=== PATIENT | female | born 1995 | race Caucasian/White ===

== ENCOUNTER 2018-07-03 03:41 | Inpatient (IN) ==
[2018-07-03] MEDS ORDERED: Metoclopramide 10 MG/2 ML VIAL IVP PRN (03:52)
[2018-07-03] MEDS ORDERED: Ondansetron 4 MG/2 ML VIAL IVP PRN (03:52)
[2018-07-03] MEDS ORDERED: miSOPROStol 25 MCG TABLET VG PRN (03:52)
[2018-07-03] MEDS ORDERED: *HR* Nalbuphine 10 MG/ML AMPUL IVP PRN (03:52)
[2018-07-03] MEDS ORDERED: Famotidine 20 MG/2 ML VIAL IVP PRN (03:52)
[2018-07-03] MEDS ORDERED: Naloxone 0.4 MG/ML INJ IVP PRN (03:52)
[2018-07-03] MEDS ORDERED: Ringers Solution, Lactated 1,000 ML IVC SCH (04:00)
[2018-07-03 05:14] LABS: Hematocrit 38.6 % (35.3-44.9); Hemoglobin 12.9 g/dL (11.5-15.4); Mean Corpuscular HGB Conc 33.4 g/dL (31.6-35.5); Mean Corpuscular Hemoglobin 29.5 pg (28.0-33.3); Mean Corpuscular Volume 88.3 fL (83.0-100.0); Mean Platelet Volume 11.7 fL (9.4-12.4); Platelet Count 173 K/mcL (140-400); Red Blood Count 4.37 M/mcL (3.82-4.97); Red Cell Distribution Width 13.6 % (11.5-14.5); Segmented Neutrophils % 72.1 %
[2018-07-03 05:15] LABS: Basophils # 0.1 K/mcL (0.0-0.2); Basophils % 0.6 %; Eosinophils # 0.1 K/mcL (0.0-0.6); Eosinophils % 1.1 %; Immature Granulocytes % 1.4 % (0-4); Lymphocytes # 1.9 K/mcL (0.6-4.6); Monocytes % 8.8 %; Neutrophils # 8.3 K/mcL (1.6-8.9)
[2018-07-03] MEDS ORDERED: miSOPROStol 25 MCG TABLET PO PRN (06:26)
[2018-07-03] MEDS ORDERED: Oxytocin 20 units/ LR 1000 mL 20 UNIT/1,000 ML BAG IVC SCH (06:30)
[2018-07-03] MEDS ORDERED: Epidural Premix (fent/bupiv) 110 ML EP SCH (07:45)
--- NOTE | 2018-07-03 07:49 | Anesthesia Evaluation PreOp ---
Date of Encounter: 07/03/18 Time of Encounter: 07:38 - Past History Planned Operation: Del, term induction G1 Cardiac History: Denies any Significant Hx Pulmonary History: Denies Any Significant HX RADIOSONDE SPECIALIST History: Other (previous herniated disc's 2? stated cervical and thorasic areas, while in yrs ago, patient denied any recent or severe chronic back pain, stated lumbar area generalized pain slighty worse in last month, denied any radiculopathy or any dependent radiculopathy. patient reports full ROM without any limitations. pt had seen Dr. Addison on 06/06 which recommended imaging to be done, when questioned about it, patient stated she did not want any imaging even MRI, while .) Other Medical History: GERD, Other (M.O. BMI 41.) Anesthesia History: No Prior Anesthetic Complications, Past Anesthesia Alcohol Use: none Drug use: none Medications and Allergies Ferrous Sulfate 1 mg PO DAILY 05/15/18 [History] Pepcid 1 mg PO DAILY 05/15/18 [History] Vit #108/Iron/FA [ One Tablet] 1 mg PO DAILY 05/15/18 [History] 3 Allergy/AdvReac Type Severity Reaction Status Date / Time No Known Allergies Allergy Verified 07/03/18 04:16 Anesthesia Results - Labs 07/03/18 04:54 Anesthesia Exam - HEENT Pupil (Motor): Pupils equal Mallampati: II Teeth: Normal Oral Opening: Greater than 3 - RADIOSONDE SPECIALIST LOC: Oriented RADIOSONDE SPECIALIST Motor: Normal RUE, Normal LUE, Normal RLE, Normal LLE, Normal Face RADIOSONDE SPECIALIST Sensory: Normal: RUE, LUE, RLE, LLE, Face - Cardiac Rhythm: Regular Murmur: None - Pulmonary Breath Sounds: bilateral Clear Respiratory Effort: Symmetrical Anesthesia Assess/Plan ASA Score: 2 Level of consciousness: Cooperative Anesthetic Plan: General, Spinal, Epidural Monitoring Plan: Standard Monitors Recovery Plan: PACU
--- NOTE | 2018-07-03 08:49 | OB/GYN History & Physical ---
Date of Encounter: 07/03/18 Time of Encounter: 08:47 Assessment and Plan (1) Elective induction of labor planned Current visit: Yes Status: Acute 22 y/o @ 39+6 weeks, GBS neg, O+ Cytotec given, Patient does not want epidural, will AROM with advanced dilation, anticipate History of Present Illness HPI: Ms. Abreu is a 22 year old female @ 39+6 weeks who presents to L&D for IOL. She does not report LOF, VB or ctxs, feels good FM. Her course was uncomplicated. She's GBS neg, O+. Past Med Surg Social Fam HX - Past Medical History Medical history: migraine Additional medical history: pititary tumor Psychiatric history: no psych history - Past Surgical History Additional surgical history: breat reduction(2013) - Social History Smoking Status: Never smoker Smokeless Tobacco Status: No Alcohol use: none Drug use: none - Family History Mother Living Status: Still Living Hx Family Cardiac Disorders: No Hx Family Respiratory Disorders: No Hx Family Cancer: No Hx Family GI Disorders: No Hx Family Endocrine Disorder: No Hx Family Neuromuscular Disorders: Yes (rheumatoid arthritis) Hx Family Neurologic Disorders: No Hx Family HEENT Disorders: No Hx Family Autoimmune Disorders: No Obstetrical History - Pregnancies : 1 Para: 0 Medications and Allergies Ferrous Sulfate 1 mg PO DAILY 05/15/18 [History] Pepcid 1 mg PO DAILY 05/15/18 [History] Vit #108/Iron/FA [ One Tablet] 1 mg PO DAILY 05/15/18 [History] Allergy/AdvReac Type Severity Reaction Status Date / Time No Known Allergies Allergy Verified 07/03/18 04:16 Review of System OB All systems PM: reviewed and no additional remarkable complaints except as stated Exam - Constitutional Constitutional: no acute distress - Cervix Dilation: 3 Results Result Diagrams: 07/03/18 04:54 Abnormal lab results WBC 11.5 K/mcL (4.3-11.1) H 07/03/18 04:54 All other labs normal. - VTE Reasons for not Prescribing Prophylaxis: Treatment not Indicated - Low risk for VTE
[2018-07-03] MEDS ORDERED: Lidocaine -MPF 2% 5 ML VIAL ONE (10:44)
--- NOTE | 2018-07-03 11:54 | OB Labor Progress Note ---
Date of Encounter: 07/03/18 Time of Encounter: 11:52 Labor Progress Note - Subjective Subjective: Patient is doing well, feeling some of her ctxs. She has completed her cytotec, still intact. - Vital Signs Vital Signs: VSS - Cervix Cervix: 3-4cm/80 - Heart Tones Heart Tones: CAT 1 - [place]: irreg - Plan Plan: start pitocin, will AROM with advanced dilation, ok for epidural if she desires, anticipate
--- NOTE | 2018-07-03 15:23 | OB Labor Progress Note ---
Date of Encounter: 07/03/18 Time of Encounter: 15:21 Labor Progress Note - Subjective Subjective: patient is feeling more of her ctxs but still comfortable - Vital Signs Vital Signs: VSS - Cervix Cervix: 4-5cm, AROM'ed - Heart Tones Heart Tones: CAT 1 - Plan Plan: patient AROM'ed, pitocin at 8, anticipate
--- NOTE | 2018-07-03 17:50 | Anesthesia Procedures ---
Addendum entered and electronically signed by Damon Rueda CRNA 07/04/18 06:45: CONVERTED TO SURGICAL EPIDURAL AT 0604. Original Note: Date of Encounter: 07/03/18 Time of Encounter: 17:27 Procedures: Anesthesia - Epidural/Spinal Patient ID/Chart reviewed: Yes Patient examined: Yes OB Eval: Gestational age: TERM OB Eval: : 1 OB Eval: Contractions: Non-stressed pattern Consent Obtained: Yes Supplemental Oxygen: None/Room Air Site Prep: Aseptic Technique, Sterile prep and drape, 0.5% Chlorhexidine/Alcohol Patient position: upright Local Anesthetic: Lidocaine 1% Amount of Local Anesthetic used: 2 Touhy Needle Gauge: 18 Touhy Needle Depth (cm): 8 Catheter Depth at Skin (cm): 12 Test Dose (1.5% Lido + Epi): Volume given (mls): 4 Test Dose Result: Negative Loading Dose: Other: 10ml from solution Loading Dose Administered: Thru Catheter Infusion Med: 0.125% Bupivacaine w/ 2 mcg/ml Fentanyl Infusion Rate (mls/hr): [address]: Tegaderm, Tape Interspace Used: L3-L4 Loss of Resistance (TERRELL): Yes (saline) Blood: No CSF: Yes (with 27g pencan only, no inj) Paresthesia: No Procedure: vss though out procedure, FHR stable per RN's
--- NOTE | 2018-07-03 18:56 | OB Labor Progress Note ---
Date of Encounter: 07/03/18 Time of Encounter: 18:54 Labor Progress Note - Subjective Subjective: patient is s/p epidural placement and is comfortable - Vital Signs Vital Signs: VSS - Cervix Cervix: 5cm/80 - Heart Tones Heart Tones: CAT 1 - Plan Plan: IUPC placed, cont pitocin, now at 16, anticipate
--- NOTE | 2018-07-03 19:47 | OB Labor Progress Note ---
Date of Encounter: 07/03/18 Time of Encounter: 19:45 Labor Progress Note - Subjective Subjective: Patient resting comfortably in bed; epidural in place - Vital Signs Vital Signs: VSS - Cervix Cervix: 7/90/-1 - Heart Tones Heart Tones: 135 baseline Cat 2 tracing; variables with occasional ctx and moderate variability - Tequesta Tequesta: Contractions every 2-3 minutes - Interventions Interventions: FSE placed without difficulty; patient and fetus tolerated well - Plan Physician notified: No Plan: Continue routine labor management GBS negative Pitocin currently infusing at 16mu/min Anticipate vaginal delivery POC per consult with Dr Garcia
--- NOTE | 2018-07-04 00:13 | OB Labor Progress Note ---
Date of Encounter: 07/04/18 Time of Encounter: 00:13 Labor Progress Note - Subjective Subjective: patient is doing well - Vital Signs Vital Signs: VSS - Cervix Cervix: 8cm - Heart Tones Heart Tones: CAT 1 - Plan Physician notified: Yes Plan: cont pitocin, IUPC in place, anticipate
--- NOTE | 2018-07-04 02:31 | OB Labor Progress Note ---
Date of Encounter: 07/04/18 Time of Encounter: 02:30 Labor Progress Note - Subjective Subjective: patient continues to do well - Vital Signs Vital Signs: VSS - Cervix Cervix: 7cm - Heart Tones Heart Tones: CAT 2 - Plan Plan: pitocin stopped, allow time to rest, cont monitoring strip
--- NOTE | 2018-07-04 05:15 | OB Labor Progress Note ---
Date of Encounter: 07/04/18 Time of Encounter: 05:15 Labor Progress Note - Subjective Subjective: patient is doing well - Vital Signs Vital Signs: VSS - Cervix Cervix: 7cm - Heart Tones Heart Tones: 130/mod nakul/+accels, non recurrent late decels, early decels and nakul decels - Plan Plan: I reviewed hrs of tracing and she's had a mix of early, variable and late decels, Given that she is still 7cm since midnight, I recommended a section in the setting of her CAT 2 tracing, Consent signed, Will proceed to
[2018-07-04] MEDS ORDERED: Lidocaine/EPI 1:200k 2% PF 20 ML VIAL ONE (05:52)
[2018-07-04] MEDS ORDERED: *HR* Morphine Sulfate/PF 10 MG/10 ML AMPUL ONE (05:52)
[2018-07-04] MEDS ORDERED: *HR* FentaNYL (PF) 100 MCG/2 ML VIAL ONE (05:52)
[2018-07-04] MEDS ORDERED: *HR* Oxytocin 10 UNIT/ML VIAL IM ONE (06:11)
[2018-07-04] MEDS ORDERED: *HR* HYDROmorphone (PF) 1 MG/ML SYRINGE IVP PRN (06:15)
[2018-07-04] MEDS ORDERED: Ringers Solution, Lactated 1,000 ML ONE (06:18)
--- NOTE | 2018-07-04 07:22 | OB/GYN Procedure Note ---
Section - Date of procedure: 07/04/18 Preop diagnosis: arrest of dilation, category 2 FHT tracing Post-op diagnosis: same Procedure: primary low transverse Surgeon: Uday Draper Blood Loss: 550 Was there an escrow assistant present: Yes Data Technical Lead: Minna Michaud Anesthesia Type: General section complications: none Disposition: L&D Recovery Room Specimens: Placenta, Cord blood - Narrative Narrative: The patient was brought to the operating room with satisfactory epidural anesthesia. The abdomen was prepped and draped in a sterile fashion. A Pfannenstiel incision was made and carried sharply down to the level of the fascia. The fascia was incised transversely. The fascia was dissected away from the underlying rectus muscles. With sharp and blunt dissection, the rectus muscles were divided in the midline. The peritoneum was entered bluntly. The incision was carried horizontally with scissors. A bladder retractor was placed to protect the bladder. A transverse incision was made across the lower uterine segment. The incision was manually extended. Clear amniotic fluid was encountered. The infant's head was asynclitic with a nuchal cord x 1, pulled up and delivered. The mouth and oropharynx were suctioned. The cord was clamped and cut. The was passed off to the waiting nurse in satisfactory condition. APGARS 8/9, weight 3385g. The placenta was extracted completely and found to be intact. The uterus was explored and found to be empty. The uterus was delivered through the abdominal incision and massaged vigorously. Intravenous Pitocin was administered. Clamps were placed about the margins of the uterine incision, which was closed primarily with a running locking stitch of 0 Vicryl with adequate hemostasis. Secondary running locking stitch was placed for extra strength to the wound. The uterus was returned to its proper anatomic position in the abdomen. The fascia was closed with a simple running stitch of 0 vicryl. The subcutaneous tissue was closed with 3-0 vicryl. The skin was closed with running subcuticular of 4-0 vicryl. The patient was brought to the recovery room in satisfactory condition.
[2018-07-04] MEDS ORDERED: Ringers Solution, Lactated 1,000 ML IVC SCH (07:45)
[2018-07-04] MEDS ORDERED: Ondansetron 4 MG/2 ML VIAL IVP PRN (07:45)
[2018-07-04] MEDS ORDERED: Sennosides 8.6 MG TABLET PO PRN (07:45)
[2018-07-04] MEDS ORDERED: Metoclopramide 10 MG/2 ML VIAL IVP PRN (07:45)
[2018-07-04] MEDS ORDERED: Oxytocin 20 units/ LR 1000 mL 20 UNIT/1,000 ML BAG IVC SCH (07:45)
--- NOTE | 2018-07-04 07:51 | Anesthesia Evaluation Post Op ---
Date of Encounter: 07/04/18 Time of Encounter: 07:41 - Vital Signs Vital Signs: vss - Lungs Lungs: Clear Ascult./Percussion - Airway Airway: Non-obstructed - Mental Status Mental Status: Alert & Oriented, Answers Appropriately - Pain Pain Scale used: Brennan (Faces) - Nausea Vomiting Nausea Vomiting: Not Present - Hydration Hydration: Gaytan catheter - Discharge PostOp Status: Transfer Patient to floor
[2018-07-04] MEDS ORDERED: PRENATAL VIT PO SCH (09:00)
[2018-07-04] MEDS ORDERED: [UNRECOGNIZED DRUG - OTHER] PO SCH (09:00)
[2018-07-04] MEDS ORDERED: IRON PO SCH (09:00)
[2018-07-04] MEDS: Ibuprofen 600 MG TABLET PO PRN ×2 (16:16→22:23)
[2018-07-04] MEDS: Simethicone 80 MG TAB.CHEW PO PRN (22:22)
[2018-07-05 05:20] LABS: Basophils % 0.3 %; Eosinophils # 0.1 K/mcL (0.0-0.6); Eosinophils % 0.9 %; Hematocrit 32.4 % (35.3-44.9); Immature Granulocytes % 0.8 % (0-4); Lymphocytes # 1.8 K/mcL (0.6-4.6); Mean Corpuscular HGB Conc 33.3 g/dL (31.6-35.5); Mean Corpuscular Hemoglobin 29.7 pg (28.0-33.3); Monocytes # 0.9 K/mcL (0.0-1.3); Monocytes % 6.8 %; Platelet Count 153 K/mcL (140-400); Red Blood Count 3.64 M/mcL (3.82-4.97); Red Cell Distribution Width 14.1 % (11.5-14.5); Segmented Neutrophils % 77.2 %
[2018-07-05 05:24] LABS: Hemoglobin 10.8 g/dL (11.5-15.4)
[2018-07-05] MEDS: Prenatal Vit/FA 1 EACH TABLET PO SCH (08:37)
[2018-07-05] MEDS: Famotidine 20 MG TABLET PO SCH (08:38)
[2018-07-05] MEDS: Ibuprofen 600 MG TABLET PO PRN ×2 (08:38→16:18)
--- NOTE | 2018-07-05 09:37 | Anesthesia Evaluation Post Op ---
Date of Encounter: 07/05/18 Time of Encounter: 09:32 - Vital Signs Vital Signs: vss - Airway Airway: Non-obstructed - Mental Status Mental Status: Alert & Oriented, Answers Appropriately - Pain Pain Scale used: Brennan (Faces) - Nausea Vomiting Nausea Vomiting: Not Present - Hydration Hydration: Tolerates oral liquids Notes: 07/05/18 09:35 patients reports her sensation and motor function is completely returned back to normal function.
--- NOTE | 2018-07-05 09:42 | OB/GYN Progress Note ---
Date of Encounter: 07/05/18 Time of Encounter: 09:40 - Assessment and Plan (1) S/P primary low transverse Current Visit: Yes Status: Acute Continue routine postop/ care anticipate discharge home tomorrow (2) Breast feeding status of mother Current Visit: Yes Status: Acute support prn Subjective - Subjective Principal diagnosis: Postop day 1 primary low transverse c/s.Cat II tracing, failure to progress Interval history: Patient up sitting in a chair holding . Patient meeting day one milestones. Patient reports pain 4/10 denies need for intervention at this time. Patient tolerated regular diet for breakfast. Patient reports: appetite normal, voiding normally, pain well controlled, ambulating normally : doing well, nursing well Objective - Vital Signs Latest vital signs: Vital Signs Temp Pulse Pulse Resp BP Pulse Ox 07/05/18 09:33 16 07/05/18 08:33 98.0 F 96 14 101/62 96 07/05/18 03:15 98.4 F 106 14 116/73 96 07/04/18 23:30 98.3 F 97 14 106/70 97 07/04/18 20:00 97.8 F 104 14 111/70 95 07/04/18 16:58 98.1 F 112 14 118/62 96 07/04/18 16:27 16 07/04/18 13:03 98.0 F 90 90 16 107/64 97 07/04/18 12:00 98.5 F 101 14 122/61 96 07/04/18 11:05 98.7 F 103 16 120/59 97 07/04/18 11:00 98.7 F 103 16 120/59 97 07/04/18 10:30 98.2 F 108 110 16 131/78 97 07/04/18 10:04 98.1 F 104 16 112/67 96 Intake and Output 07/04/18 07/05/18 07/05/18 23:59 07:59 15:59 Intake Total 600 / 600 400 / 400 Output Total 300 / 300 1500 / 1500 300 / 300 Balance 300 / 300 -1100 / -1100 -300 / -300 Intake: Oral 600 / 600 400 / 400 Output: Urine 300 / 300 1500 / 1500 300 / 300 Other: Weight 114.6 kg Patient Weight 07/05/18 23:59 Weight 114.6 kg - Exam Lungs: bilateral: normal Extremities: Present: normal Abdomen: Present: normal appearance, soft Incision: Present: normal, dry, dressed (medipore dressing) - Labs Labs: Laboratory Results - last 24 hr 07/05/18 04:35 WBC 13.0 H RBC 3.64 L Hgb 10.8 L D Hct 32.4 L MCV 89.0 MCH 29.7 MCHC 33.3 RDW 14.1 Plt Count 153 MPV 12.0 Immature Gran % 0.8 Seg Neutrophils % 77.2 Lymphocytes % 14.0 Monocytes % 6.8 Eosinophils % 0.9 Basophils % 0.3 Neutrophils # 10.0 H Lymphocytes # 1.8 Monocytes # 0.9 Eosinophils # 0.1 Basophils # 0.0
[2018-07-05] MEDS: *HR* OxyCODONE/APAP 5/325 TABLET PO PRN (18:32)
[2018-07-05] MEDS: Simethicone 80 MG TAB.CHEW PO PRN (18:32)
[2018-07-06] MEDS: *HR* OxyCODONE/APAP 5/325 TABLET PO PRN ×2 (01:09→06:25)
[2018-07-06] MEDS: Prenatal Vit/FA 1 EACH TABLET PO SCH (07:35)
[2018-07-06] MEDS: Famotidine 20 MG TABLET PO SCH (07:36)
[2018-07-06 08:28] VITALS: BP 125/82
--- NOTE | 2018-07-06 08:37 | Discharge Summary ---
Date of Encounter: 07/06/18 Time of Encounter: 08:27 - Discharge Diagnosis (1) S/P primary low transverse Priority: Primary Status: Acute Comments: Patient meeting day two milestones. Pain well-controlled with prescribed medications. Voiding without difficulty, tolerating regular diet. No bowel movement yet. Anticipate discharge today Home with Percocet RX. [facility] report reviewed and appropriate. (2) Breast feeding status of mother Priority: Secondary Status: Acute Comments: support as needed Patient states she already has a breast pump - Discharge Medications Prescriptions: New Ibuprofen [Motrin] 600 mg PO Q6HR PRN #60 tablet PRN Reason: Cramping OxyCODONE/APAP 5/325 [Percocet 5/325 MG] 1 each PO Q6H PRN 7 Days #28 tablet PRN Reason: Moderate pain 4-6 Docusate [Colace] 100 mg PO BID capsule Simethicone [Gas-X] 80 mg PO TID PRN tab.chew PRN Reason: Dyspepsia Continue Vit #108/Iron/FA [ One Tablet] 1 mg PO DAILY Pepcid 1 mg PO DAILY Ferrous Sulfate 1 mg PO DAILY Home Medications: Ferrous Sulfate 1 mg PO DAILY 05/15/18 [History] Pepcid 1 mg PO DAILY 05/15/18 [History] Vit #108/Iron/FA [ One Tablet] 1 mg PO DAILY 05/15/18 [History] Docusate [Colace] 100 mg PO BID capsule 07/06/18 [Rx] Ibuprofen [Motrin] 600 mg PO Q6HR PRN #60 tablet 07/06/18 [Rx] OxyCODONE/APAP 5/325 [Percocet 5/325 MG] 1 each PO Q6H PRN 7 Days #28 tablet 07/06/18 [Rx] Simethicone [Gas-X] 80 mg PO TID PRN tab.chew 07/06/18 [Rx] Allergies/Adverse Reactions: Allergy/AdvReac Type Severity Reaction Status Date / Time No Known Allergies Allergy Verified 07/03/18 04:16 Data Procedures and tests throughout hospitalization: Laboratory Tests 07/03/18 07/05/18 04:54 04:35 WBC 11.5 H 13.0 H RBC 4.37 3.64 L Hgb 12.9 10.8 L D Hct 38.6 32.4 L MCV 88.3 89.0 MCH 29.5 29.7 MCHC 33.4 33.3 RDW 13.6 14.1 Plt Count 173 153 MPV 11.7 12.0 Immature Gran % 1.4 0.8 Seg Neutrophils % 72.1 77.2 Lymphocytes % 16.0 14.0 Monocytes % 8.8 6.8 Eosinophils % 1.1 0.9 Basophils % 0.6 0.3 Neutrophils # 8.3 10.0 H Lymphocytes # 1.9 1.8 Monocytes # 1.0 0.9 Eosinophils # 0.1 0.1 Basophils # 0.1 0.0 Date of admission: 07/03/18 03:41 Primary care physician: Ronna Garcia MD Discharging clinician: Delaney Lugo Anticipated date of discharge: 07/06/18 - Patient Status Disposition: Home, Self-Care Condition: Good Functional capacity at discharge: independent ambulation Overall status at discharge: patient is progressing back to baseline - Discharge Instructions Follow Up With: Ronna Garcia MD [Primary Care Provider] - - Diet and Activity Activity: resume usual activities as tolerated Diet: regular diet Hospital Course Reason for admission: induction of labor Delivery: section Episiotomy: none Laceration: none Other procedures: none complications: none Discharge diagnosis: IUP at term delivered baby: male Hospital course: Date of procedure: 07/04/18 Preop diagnosis: arrest of dilation, category 2 FHT tracing Post-op diagnosis: same Procedure: primary low transverse Surgeon: Uday Garcia Quantitated Blood Loss: [address] office assistant present: Yes Help Desk Consultant: Minna Michaud Anesthesia Type: General section complications: none Disposition: L&D Recovery Room Specimens: Placenta, Cord blood - Narrative Narrative: The patient was brought to the operating room with satisfactory epidural anesthesia. The abdomen was prepped and draped in a sterile fashion. A Pfannenstiel incision was made and carried sharply down to the level of the fascia. The fascia was incised transversely. The fascia was dissected away from the underlying rectus muscles. With sharp and blunt dissection, the rectus muscles were divided in the midline. The peritoneum was entered bluntly. The incision was carried horizontally with scissors. A bladder retractor was placed to protect the bladder. A transverse incision was made across the lower uterine segment. The incision was manually extended. Clear amniotic fluid was encountered. The 's head was asynclitic with a nuchal cord x 1, pulled up and delivered. The mouth and oropharynx were suctioned. The cord was clamped and cut. The was passed off to the waiting nurse in satisfactory condition. APGARS 8/9, weight 3385g. The placenta was extracted completely and found to be intact. The uterus was explored and found to be empty. The uterus was delivered through the abdominal incision and massaged vigorously. Intravenous Pitocin was administered. Clamps were placed about the margins of the uterine incision, which was closed primarily with a running locking stitch of 0 Vicryl with adequate hemostasis. Secondary running locking stitch was placed for extra strength to the wound. The uterus was returned to its proper anatomic position in the abdomen. The fascia was closed with a simple running stitch of 0 vicryl. The subcutaneous tissue was closed with 3-0 vicryl. The skin was closed with running subcuticular of 4-0 vicryl. The patient was brought to the recovery room in satisfactory condition. Time Attestation: Total time spent providing and/or coordinating discharge services: Time Spent: Less than 30 minutes - VTE Reasons for not Prescribing Prophylaxis: Treatment not Indicated - Low risk for VTE Documentation of Mechanical Device: Intermittent pneumatic compression device Exam - Constitutional Vitals: Temp Pulse Resp BP Pulse Ox 98.3 F 93 14 107/73 99 07/05/18 19:45 07/05/18 19:45 07/05/18 19:45 07/05/18 19:45 07/05/18 19:45 General appearance IM: A&O X 3, pleasant, no acute distress - Respiratory Respiratory exam: Present: CTAB - Cardiovascular Cardiovascular exam IM: Present: RRR, +S1, +S2 - GI/Abdominal GI/Abdominal exam IM: normal bowel sounds, soft Incision: normal, intact - Rectal Rectal exam: deferred - Uterine Tone: Firm Uterus Position: 1 Finger Below Umbilicus, Midline - Extremities Exam Extremities exam IM: Present: full ROM, normal capillary refill, normal inspection - Neurological Exam Neurological exam: alert, normal gait, oriented X3
[2018-07-06] MEDS: Ibuprofen 600 MG TABLET PO PRN (12:47)
[2018-07-06] MEDS: Simethicone 80 MG TAB.CHEW PO PRN (12:47)
== END 2018-07-06 15:46 | disposition home or self-care (01) | DRG 788 ==
LOC: 1NENULAB 03:41 → 1NENUOBS 07-04 09:37
PROVIDERS: ADMIT Registered Nurse; ATTEND Registered Nurse

== ENCOUNTER 2019-07-23 13:28 | Observation (INO) ==
[2019-07-23] MEDS ORDERED: Ondansetron 4 MG/2 ML VIAL IVP PRN (20:17)
[2019-07-24 11:03] LABS: Hematocrit 42.9 % (35.3-44.9); Hemoglobin 14.1 g/dL (11.5-15.4); Mean Corpuscular HGB Conc 32.9 g/dL (31.6-35.5); Mean Corpuscular Volume 88.3 fL (83.0-100.0); Mean Platelet Volume 10.6 fL (9.4-12.4); Platelet Count 241 K/mcL (140-400); Red Blood Count 4.86 M/mcL (3.82-4.97); Red Cell Distribution Width 12.1 % (11.5-14.5); White Blood Count 7.8 K/mcL (4.3-11.1)
[2019-07-24 11:16] LABS: BUN/Creatinine Ratio 18 (6-26); Blood Urea Nitrogen 14 mg/dL (6-20); Calcium 9.4 mg/dL (8.6-10.3); Carbon Dioxide 27 mEq/L (23-29); Chloride 106 mEq/L (98-107); Glucose 86 mg/dL (70-105); Osmolality,Calculated 282 (280-300); Sodium 136 mEq/L (136-145); eGFR For African Americans > 60 (> 60); eGFR For Non-African Americans > 60 (> 60)
[2019-07-24] MEDS ORDERED: *HR* HYDROmorphone PF 0.5 MG/0.5 ML SYRINGE IVP PRN (12:57)
[2019-07-24] MEDS ORDERED: Ondansetron 4 MG/2 ML VIAL IVP ONE (12:57)
[2019-07-24] MEDS ORDERED: *HR* Meperidine 25 MG/ML SYRINGE IVP PRN (12:57)
[2019-07-24] MEDS ORDERED: *HR* Promethazine 25 MG/ML VIAL IVP PRN (12:57)
[2019-07-24] MEDS ORDERED: Ondansetron 4 MG/2 ML VIAL ONE (13:50)
[2019-07-24] MEDS ORDERED: *HR* Succinylcholine 200 MG/10 ML VIAL IVP ONE (13:50)
[2019-07-24] MEDS ORDERED: Lidocaine -MPF 2% 2 ML VIAL ONE (13:50)
[2019-07-24] MEDS ORDERED: *HR* FentaNYL (PF) 100 MCG/2 ML VIAL ONE (13:50)
[2019-07-24] MEDS ORDERED: Dexamethasone 4 MG/ML VIAL ONE (13:50)
[2019-07-24] MEDS ORDERED: *HR* Rocuronium Bromide 50 MG/5 ML VIAL ONE (13:50)
[2019-07-24] MEDS ORDERED: *HR* Midazolam HCl 2 MG/2 ML VIAL ONE (13:51)
[2019-07-24] MEDS ORDERED: *HR* Propofol 200 MG/20 ML VIAL IVP ONE (13:51)
[2019-07-24] MEDS ORDERED: Acetaminophen IV 1,000 MG/100 ML INFUS..BTL ONE (14:58)
[2019-07-24] MEDS ORDERED: Lidocaine HCL 4 ML Topical Solution (Laryng-O-Jet Kit Sterile Pak) TP ONE (16:03)
[2019-07-24] MEDS ORDERED: *HR* HYDROMORPHONE 2 MG/ML VIAL ONE (16:18)
[2019-07-24] MEDS ORDERED: CefOXitin 2,000 MG VIAL ONE (16:23)
[2019-07-24] MEDS ORDERED: Neostigmine Methylsulfate 3 MG/3 ML SYRINGE ONE (16:42)
[2019-07-24] MEDS ORDERED: Ketorolac 30 MG/ML VIAL ONE (16:43)
[2019-07-24] MEDS ORDERED: *HR* OxyCODONE/APAP 5/325 TABLET PO PRN (16:53)
[2019-07-24] MEDS ORDERED: Ondansetron 4 MG/2 ML VIAL IVP PRN ×2 (16:54→18:57)
[2019-07-24] MEDS: Morphine Sulfate Oral CONC 10 MG/0.5 ML ORAL.SYG SL PRN (19:31)
[2019-07-24] MEDS: *HR* OxyCODONE/APAP 5/325 TABLET PO PRN (22:20)
[2019-07-25] MEDS: Morphine Sulfate Oral CONC 10 MG/0.5 ML ORAL.SYG SL PRN (03:26)
[2019-07-25 06:39] VITALS: BP 101/66
[2019-07-25] MEDS: *HR* OxyCODONE/APAP 5/325 TABLET PO PRN (08:31)
== END 2019-07-25 09:32 | disposition home or self-care (01) ==
LOC: 3ANU
PROVIDERS: ADMIT Surgery; ATTEND Surgery